=== PATIENT | female | born 1990 | race American Indian/Alaskan Native ===

== ENCOUNTER 2019-07-07 18:13 | Outpatient (CLI) | payer OTHER ==
[2019-07-07 18:45] VITALS: BP 103/68
== END 2019-07-07 20:45 | disposition home or self-care (01) ==
LOC: TRG 18:13
PROVIDERS: ATTEND Obstetrics & Gynecology
DX: O47.1 False labor at or after 37 completed weeks of gestation (principal); Z3A.38 38 weeks gestation of pregnancy
CPT/HCPCS: 59025

== ENCOUNTER 2021-05-16 06:22 | Day surgery (SDC) | payer OTHER ==
[2021-05-14 11:35] LABS: Hemoglobin 12.6 gm/dl (10.1-14.3); Mean Corpuscular HGB Conc 32 % (30-34); Mean Corpuscular Volume 93 fl (79-97); Platelet Count 200 K/mm3 (140-440); Red Blood Count 4.21 M/mm3 (3.65-5.03); Red Cell Distribution Width 13.8 % (13.2-15.2)
[~2021-05-16 06:22] MED LIST: ACETAMINOPHEN 500 MG TAB PO SCH; CELECOXIB 200 MG CAP PO NR; GABAPENTIN 300 MG CAP PO NR; LACTATED RINGERS 1,000 ML IV SCH; MIDAZOLAM 2 MG/2 ML INJ IV NR; SCOPOLAMINE TRANSDERMAL PATCH 72 HR TD NR
[2021-05-16] MEDS ORDERED: BUPIVACAINE/PF (0.5%) 5 MG/1 ML 10 ML VIAL INFILTRATI ONE ×2 (07:17→08:29)
[2021-05-16] MEDS ORDERED: propofoL 200 MG/20 ML VIAL IV ONE (07:19)
[2021-05-16] MEDS ORDERED: ROCURONIUM 50 MG/5 ML INJ IV ONE (07:19)
[2021-05-16] MEDS ORDERED: LIDOCAINE MPF (2%) 20 MG/1 ML VIAL 5 ML ONE (07:19)
[2021-05-16] MEDS ORDERED: fentaNYL 100 MCG/2 ML INJ ONE (07:19)
--- NOTE | 2021-05-16 07:29 | Anesthesia Consultation ---
Anesthesia Consult and Med Hx Date of service: 05/16/21 - Airway Anesthetic Teeth Evaluation: Good (permanent retainer - bottom) ROM Head & Neck: Adequate Mental/Hyoid Distance: Adequate Mallampati Class: Class II Intubation Access Assessment: Probably Good - Pulmonary Exam CTA: Yes - Cardiac Exam Cardiac Exam: RRR - Pre-Operative Health Status ASA Pre-Surgery Classification: ASA2 Proposed Anesthetic Plan: General - Pulmonary Hx Smoking: Yes (1-2 cigarettes/day) Hx Asthma: No Hx Respiratory Symptoms: No Hx Sleep Apnea: No - Cardiovascular System Hx Hypertension: No Hx Heart Attack/AMI: No - Central Nervous System Hx Neuromuscular Disorder: No (migraines) Hx Seizures: No Hx Psychiatric Problems: Yes (anxiety) - Gastrointestinal Hx Gastroesophageal Reflux Disease: Yes (occasional) - Endocrine Hx Renal Disease: No Hx Liver Disease: No Hx Non-Insulin Dependent Diabetes: No Hx Thyroid Disease: No - Hematic Hx Anemia: Yes (H&H today) Hx Sickle Cell Disease: No - Other Systems Hx Alcohol Use: Yes Hx Substance Use: Yes (Marijuana ) Hx Cancer: No Hx Obesity: No - Additional Comments Anesthesia Medical History Comments: no hx of anesthesia complications
--- NOTE | 2021-05-16 07:29 | Anesthesia Day of Surgery ---
Anesthesia Day of Surgery - Day of Surgery Patient Examined: Yes Patient H&P Reviewed: Yes Patient is NPO: Yes
--- NOTE | 2021-05-16 07:31 | Short Stay Summary ---
Short Stay Documentation Date of service: 05/16/21 Narrative H&P: 31-year-old -0-2-3 with unwanted fertility. The patient is aware of other contraceptive options and has elected for permanent sterilization. - History Principal diagnosis: Unwanted fertility Past Medical History: No medical history Past Surgical History: No surgical history Social history: single - Allergies and Medications Current Medications: Allergies No Known Allergies Allergy (Unverified 03/05/16 02:33) Home Medications Medication Instructions Recorded Confirmed Last Taken Type No Known Home Medications [No 05/14/21 05/14/21 Unknown History Reported Home Medications] Active Medications Acetaminophen (Acetaminophen 500 Mg Tab) 1,000 mg PO PREOP ROCIO Celecoxib (Celecoxib 200 Mg Cap) 200 mg PO PREOP NR Stop: 05/16/21 23:59 Gabapentin (Gabapentin 300 Mg Cap) 300 mg PO PREOP NR Stop: 05/16/21 23:59 Lactated Ringer's (Lactated Ringers) 1,000 mls @ 100 mls/hr IV DIRECT ROCIO Stop: 05/16/21 23:59 Midazolam HCl (Midazolam 2 Mg/2 Ml Inj) 2 mg IV PREOP NR Stop: 05/16/21 23:59 Scopolamine (Scopolamine Transdermal Patch 72 Hr) 1 each TD PREOP NR Stop: 05/16/21 23:59 - Physical exam General appearance: no acute distress Integumentary: no rash HEENT: Atraumatic Lungs: Clear to auscultation Breasts: deferred Heart: Regular rate Gastrointestinal: normal Female Genitourinary: deferred Rectal Exam: deferred - Brief post op/procedure progress note Date of procedure: 05/16/21 Pre-op diagnosis: Unwanted fertility Post-op diagnosis: same Procedure: Laparoscopy Bilateral salpingectomy Anesthesia: GETA Surgeon: ALPESH BEVERLY Estimated blood loss: minimal Pathology: list (Fallopian tubes) Specimen disposition: to lab Condition: stable - Hospital course Hospital course: The patient was admitted the day of surgery underwent a laparoscopic tubal ligation. Please see operative note for details of surgery. Her postoperative course was uneventful. - Disposition Condition at discharge: Good Disposition: 01 HOME / SELF CARE / HOMELESS Short Stay Discharge Plan Activity: other (Pelvic rest for 1 week) Diet: regular Additional Instructions: Follow-up is not required Follow-up as needed
[2021-05-16] MEDS ORDERED: ONDANSETRON 4 MG/2 ML INJ IV PRN (07:33)
[2021-05-16] MEDS ORDERED: HYDROmorphone 1 MG/1 ML INJ IV PRN (07:33)
[2021-05-16] MEDS ORDERED: oxyCODONE /ACETAMINOPHEN 5-325MG TAB PO PRN (07:33)
[2021-05-16] MEDS ORDERED: SODIUM CHLORIDE 0.9% IRR 1,500 ML BOTTLE IR ONE (08:29)
[2021-05-16] MEDS ORDERED: dexAMETHasone 20 MG/5 ML VIAL ONE (08:57)
[2021-05-16] MEDS ORDERED: NEOSTIGMINE 10MG/10 ML INJ MDV ONE (08:57)
[2021-05-16] MEDS ORDERED: ONDANSETRON 4 MG/2 ML INJ ONE (08:57)
[2021-05-16] MEDS ORDERED: LACTATED RINGERS 1,000 ML ONE (08:57)
[2021-05-16] MEDS ORDERED: GLYCOPYRROLATE 0.4 MG/2 ML INJ ONE (08:57)
--- NOTE | 2021-05-16 09:01 | Operative Report ---
Operative Report Operative Report: Date of surgery: May 16, 2021 Preoperative diagnosis: Unwanted fertility Postoperative diagnosis: Same as above Procedure: Laparoscopy; Bilateral salpingectomy Surgeon: Mariana Grullon M.D. Anesthesia: General endotracheal anesthesia Estimated blood loss: Minimal Pathology: Bilateral fallopian tubes Findings: Normal uterus tubes and ovaries Indication: 31-year-old -0-2-3 with unwanted fertility Procedure: The patient was taken to the operating room and given general endotracheal anesthesia without complication. The patient is prepped and draped in a normal sterile fashion. A bivalve speculum was placed in the patient's vagina and a single-tooth tenaculum was placed on the anterior lip of the cervix .A uterine acorn manipulator was placed, and the bivalve speculum was then removed. Attention was then turned to the patient's abdomen where a 5 mm infraumbilical skin incision was then made. A Veress needle was placed and peritoneal entry was verified water-filled syringe. Insufflation of the peritoneal cavity was performed with CO2 gas. A 5 mm trocar was placed and the laparoscope was then inserted. The patient was then placed in Trendelenburg. A 7 mm suprapubic skin incision was then made. Under direct visualization a 7 mm trocar was then placed. An additional 5 mm left lateral trocar was also placed. General survey of the patient's abdomen revealed normal uterus tubes and ovaries. The fallopian tube was then followed out to the fimbriated end. The LigaSure device was used in order to coagulate and transect the mesosalpinx. The fallopian tube was excised from the adnexa. The fallopian tube was removed through the 7 mm trocar. This was performed on the contralateral side as well. The trocars were then removed. The pneumoperitoneum was then released. The 5 mm trocar laparoscope was then removed. The skin incisions were then closed wi th 4-0 Monocryl. The incisions were injected with quarter percent Marcaine. Dressings were applied to the incision. The vaginal instruments were then removed atraumatically. Then successfully extubated and taken to the recovery room. All sponge laps and needle counts were correct x2.
[2021-05-16 10:19] VITALS: BP 107/66
--- NOTE | 2021-05-16 10:27 | Post Anesthesia Evaluation ---
- Post Anesthesia Evaluation Patient Participated: Yes Airway Patent: Yes Stable Respiratory Function: Yes Nausea/Vomiting: No Temp > 96.8F: Yes Pain Manageable: Yes Adequeate Hydration: Yes Anesthesia Complications: No
== END 2021-05-16 10:30 | disposition home or self-care (01) ==
LOC: OR 06:22
PROVIDERS: ATTEND Obstetrics & Gynecology
DX: Z30.2 Encounter for sterilization (principal); F17.210 Nicotine dependence, cigarettes, uncomplicated; G43.909 Migraine, unspecified, not intractable, without status migrainosus; K21.9 Gastro-esophageal reflux disease without esophagitis; F41.9 Anxiety disorder, unspecified; Z20.822 Contact with and (suspected) exposure to COVID-19; Z72.89 Other problems related to lifestyle; Z98.890 Other specified postprocedural states; Z83.3 Family history of diabetes mellitus; Z80.8 Family history of malignant neoplasm of other organs or systems; Z82.49 Family history of ischemic heart disease and other diseases of the circulatory system
CPT/HCPCS: 36415; 58670; 84703; 85027; 88302; J1100; J1815; J2250; J2405; J2704; J2710; J3010; J3490; J7120; U0003